=== PATIENT | male | born 1975 | race Caucasian/White ===

== ENCOUNTER 2018-07-24 15:50 | Emergency (ER) | payer BC ==
[2018-07-24] MEDS ORDERED: CLINDAMYCIN 600MG/50ML PREMIX 600 MG/50 ML BAG IVPB ONE (15:52)
--- NOTE | 2018-07-24 15:58 | Emergency Department Record ---
History of Present Illness - General Stated complaint: SORE ON FACE Time Seen by Provider: 07/24/18 15:52 Source: Patient Mode of Arrival: Ambulatory Limitations: No limitations - History of Present Illness Initial comments: 43 yo male presents with redness and swelling to the right maxillary area. The area started small yesterday evening. It is not tender but it is warm and red. No pain or fever. No dental issues. No MRSA history. No diabetes. He did not see any bugs or spiders bite him. No other sores on his body. He was seen in the [facility]. MD complaint: Abscess/boil -: Days(s) (1) Location: Face Severity: Mild Quality: Other (No pain) Improves with: None Worsens with: None Context: None Associated symptoms: Denies other symptoms Treatments Prior to Arrival: None - Related Data Previous Rx's Medication Instructions Recorded Clindamycin HCl 300 mg PO QID #28 capsule 07/24/18 Allergies Allergy/AdvReac Type Severity Reaction Status Date / Time No Known Allergies Allergy none Verified 07/24/18 16:09 Review of Systems Constitutional: Denies: Chills, Fever, Malaise, Weakness Eyes: Denies: Eye discharge, Eye pain, Photophobia, Vision change ENT: Denies: Congestion, Throat pain Respiratory: Denies: Cough, Dyspnea Cardiovascular: Denies: Chest pain, Syncope Endocrine: Denies: Fatigue Gastrointestinal: Denies: Abdominal pain, Diarrhea, Nausea, Vomiting Genitourinary: Denies: Dysuria, Frequency, Hematuria Musculoskeletal: Denies: Arthralgia, Back pain, Myalgia Skin: Reports: As per HPI, Lesions. Denies: Bruising, Change in color Neurological: Denies: Confusion, Headache Psychiatric: Denies: Anxiety Hematological/Lymphatic: Denies: Blood Clots, Easy bleeding, Easy bruising, Swollen glands Physical Exam - General General Appearance: Alert, Oriented x3, Cooperative, No acute distress Limitations: No limitations - Head Head exam: Atraumatic, Normal inspection Image of Face/Head: 1 - 2cm soft, non tender, central 3mm scab, erythema locally - Eye Eye exam: Normal appearance, PERRL. negative: Conjunctival injection, Scleral icterus - ENT ENT exam: Mucous membranes moist, Normal orophraynx Ear exam: Normal external inspection Nasal Exam: Normal inspection Mouth exam: Normal external inspection Teeth exam: Normal inspection Throat exam: Normal inspection - Neck Neck exam: Normal inspection, Full ROM. negative: Lymphadenopathy - Extremities Extremities exam: Normal inspection - Neurological Neurological exam: Alert, Oriented X3 - Psychiatric Psychiatric exam: Normal affect, Normal mood - Skin Skin exam: Erythema Type of lesion: Abscess Distribution of rash: Face Course - Reevaluation(s) Reevaluation #1: The area is approximately 2 x 3cm I used the bedside US to assess for abscess. No discrete fluid collection was identified I discussed with him needle aspiration to assess for any pus as well. He agreed with this approach Betadine prep. 18 gauge needle used. No pus. Only a small amount of blood. The small amount of blood cultured He will be given a dose of Clindamycin and sent home on PO Clindamycin. 07/24/18 16:16 07/24/18 16:32 BMP is normal CRP is 0.7 DC with oral clindamycin We discussed reasons for immediate return to the ED Medical Decision Making - Lab Data Result diagrams: 07/24/18 15:59 07/24/18 15:59 Disposition Disposition: Discharge Clinical Impression: Facial cellulitis Disposition: Home, Self-Care Condition: (1) Good Instructions: Cellulitis (ED) Additional Instructions: Call your doctor for the next available follow up appointment Return to the ER for a recheck if worse, any new concerns or questions over the next 2 days Take the prescriptions provided as directed every days Review this ER visit and the tests performed with your family doctor Prescriptions: Clindamycin HCl 300 mg PO QID #28 capsule Forms: Patient Portal Access Time of Disposition: 16:32 Quality - Quality Measures Quality Measures: N/A - Blood Pressure Screening Does Patient Have Any of the Following: No Blood Pressure Classification: Pre-Hypertensive BP Reading Systolic Measurement: 130 Diastolic Measurement: 85 Screening for High Blood Pressure: < Pre-Hypertensive BP, F/U Documented > [ G8950] Pre-Hypertensive Follow-up Interventions: Referral to alternative/primary care provider.
[2018-07-24 16:08] LABS: BASO % 0.3 % (0-6); EOS % 0.3 % (0-6); GRAN % 72.3 % (47-80); HEMATOCRIT 45.9 % (42.0-52.0); HEMOGLOBIN 15.7 gm/dl (14.0-18.0); LYMPH % 17.8 % (16-45); MEAN CELL VOLUME 86.9 fl (81-97); MEAN CORPUSCULAR HEMOGLOBIN 29.7 pg (27-33); MEAN CORPUSCULAR HGB CONC 34.2 g/dl (32-36); MEAN PLATELET VOLUME 9.7 fl (7.4-10.4); MONO % 9.3 % (0-9); PLATELET COUNT 313 K/uL (130-400); RED BLOOD COUNT 5.28 M/uL (4.40-5.70)
[2018-07-24 16:21] LABS: BLOOD UREA NITROGEN 11 mg/dL (6-20); CREATININE 0.9 mg/dL (0.7-1.2); EST GLOMERULAR FILTRATION RATE > 60 mL/min
[2018-07-24 16:24] LABS: GLUCOSE,RANDOM 101 mg/dL (74-109)
[2018-07-24 16:27] LABS: C-REACTIVE PROTEIN 0.74 mg/dL (<0.5)
== END 2018-07-24 16:45 | disposition home or self-care (01) ==
LOC: ER 15:50
DX: L03.211 Cellulitis of face (principal)
CPT/HCPCS: 10160; 80048; 85025; 86140; 96365; 99284

== ENCOUNTER 2018-07-25 15:30 | Emergency (ER) | payer BC ==
[2018-07-25] MEDS ORDERED: CLINDAMYCIN 600MG/50ML PREMIX 600 MG/50 ML BAG IVPB ONE (15:35)
[2018-07-25] MEDS ORDERED: METHYLPREDNISOLONE PF 125MG/VIAL IVP ONE (15:35)
--- NOTE | 2018-07-25 15:42 | Emergency Department Record ---
History of Present Illness - General Chief Complaint: Wound, check Stated Complaint: RECHECK Time Seen by Provider: 07/25/18 15:35 Source: Patient Mode of arrival: Ambulatory Limitations: No limitations - History of Present Illness Initial Comments: 43 yo male presents for a recheck of his right cheek. He developed erythema and swelling without fever two days ago. He has been on one full day of antibiotics. The area is slight more swollen. However, he has now developed a small area of rash on the right hand that itches. He has been working around brush outside. With the area on the face that itches and the hand now with a rash he was concerned about poison oak/mario. No fevers. MD Complaint: Needs IV antibiotics, Wound re-check -: Days(s) (3) Initial Visit For: Cellulitis Returns Today for: Needs IV antibiotics, Wound recheck Symptoms Since Prior Visit: Worsening swelling (Mild increase in symptoms) Associated Symptoms: None Treatments Prior to Arrival: Given antibiotics on initial visit - Related Data Previous Rx's Medication Instructions Recorded Clindamycin HCl 300 mg PO QID #28 capsule 07/24/18 Prednisone [Prednisone 20Mg] 20 mg PO BID #10 tab 07/25/18 Allergies Allergy/AdvReac Type Severity Reaction Status Date / Time No Known Allergies Allergy none Verified 07/24/18 16:09 Review of Systems Constitutional: Denies: Chills, Fever, Malaise, Night sweats, Weakness Eyes: Denies: Eye discharge, Eye pain, Photophobia, Vision change ENT: Denies: Congestion, Throat pain Respiratory: Denies: Cough, Dyspnea, Hemoptysis, Stridor, Wheezes Cardiovascular: Denies: Chest pain, Palpitations, Syncope Endocrine: Denies: Fatigue Gastrointestinal: Denies: Abdominal pain, Diarrhea, Nausea, Vomiting Genitourinary: Denies: Dysuria, Frequency, Hematuria Musculoskeletal: Denies: Arthralgia, Back pain, Joint swelling, Myalgia Skin: Reports: Change in color, Rash. Denies: Bruising Neurological: Denies: Headache Psychiatric: Denies: Anxiety Hematological/Lymphatic: Denies: Easy bleeding, Easy bruising Past Medical History - SOCIAL HISTORY Smoking Status: Former smoker - RESPIRATORY Hx Respiratory Disorders: No - CARDIOVASCULAR Hx Cardio Disorders: No - NEURO Hx Neuro Disorders: No - GI Hx GI Disorders: No - Hx Genitourinary Disorders: No - ENDOCRINE Hx Endocrine Disorders: No - MUSCULOSKELETAL Hx Musculoskeletal Disorders: No - PSYCH Hx Psych Problems: No - HEMATOLOGY/ONCOLOGY Hx Hematology/Oncology Disorders: No Physical Exam - General General Appearance: Alert, Oriented x3, Cooperative, No acute distress Limitations: No limitations - Head Head exam: Atraumatic Image of Face/Head: 1 - erythema without warmth, some scant clear (non pus) drainage, soft, non tender area - Eye Eye exam: Normal appearance, PERRL, EOMI, Periorbital swelling (mild lower lid swelling). negative: Conjunctival injection, Scleral icterus - ENT ENT exam: Normal exam, Mucous membranes moist, Normal orophraynx Ear exam: Normal external inspection Nasal Exam: Normal inspection Mouth exam: Normal external inspection Teeth exam: Normal inspection Throat exam: Normal inspection - Neck Neck exam: Normal inspection, Full ROM. negative: Lymphadenopathy - Respiratory Respiratory exam: Normal lung sounds bilaterally. negative: Respiratory distress - Cardiovascular Cardiovascular Exam: Regular rate, Normal rhythm, Normal heart sounds - Extremities Extremities exam: Full ROM. negative: Normal inspection, Joint swelling, Tenderness Image of Hand: 1 - erythematous rash, slightly raised, itches - Neurological Neurological exam: Alert, Oriented X3 - Psychiatric Psychiatric exam: Normal affect, Normal mood. negative: Agitated, Anxious - Skin Skin exam: Erythema, Rash (face and hand) Course - Reevaluation(s) Reevaluation #1: The area is slightly worse than yesterday but now with an itchy erythematous area on the right hand This may represent a contact dermatitis. Solumedrol was ordered. I did discuss a CT scan to ensure no abscess formation or complication Bedside US was again performed. No visible fluid collection on the bedside US He agrees with CT at this time 07/25/18 17:25 CT of the face was reviewed. No abscess. The CT is consistent with possible cellulitis We discussed the results and the plan to continue PO antibiotic as he has only had one day on antibiotics and not a treatment failure at this time We discussed returning in the next 1-2 days for a recheck in not improving and sooner if worse Disposition Disposition: Discharge Clinical Impression: Facial cellulitis, Contact dermatitis Disposition: Home, Self-Care Condition: (1) Good Instructions: Cellulitis (ED) Additional Instructions: Return in the next 1-2 days if not improving Return sooner if worse, fever, pain Take the prescriptions as directed Prescriptions: Prednisone [Prednisone 20Mg] 20 mg PO BID #10 tab Forms: Patient Portal Access Time of Disposition: 17:25 Quality - Quality Measures Quality Measures: N/A - Blood Pressure Screening Does Patient Have Any of the Following: No Blood Pressure Classification: Pre-Hypertensive BP Reading Systolic Measurement: 124 Diastolic Measurement: 79 Screening for High Blood Pressure: < Pre-Hypertensive BP, F/U Documented > [ G8950] Pre-Hypertensive Follow-up Interventions: Referral to alternative/primary care provider.
--- NOTE | 2018-07-29 04:54 | CT SCAN REPORT ---
DATE: 07/25/2018. EXAM: CT MAXILLOFACIAL WITH CONTRAST. HISTORY: Facial swelling and inflammation after being scratched by a tree branch. TECHNIQUE: Standard CT imaging of the maxillofacial structures with intravenous contrast. Coronal and sagittal reformations are provided. COMPARISON: None. FINDINGS: There is subcutaneous edema and skin thickening overlying the right side of the face. No discrete fluid collection is identified. The parotid and submandibular glands appear normal. The parapharyngeal spaces are unremarkable. No enlarged adenopathy. The orbits and globes are unremarkable. The paranasal sinuses and mastoid air cells are clear. There is debris in the external auditory canals bilaterally. No periapical lucency is identified. No radiopaque foreign body is identified. IMPRESSION: FINDINGS OF RIGHT-SIDED FACIAL CELLULITIS. NO DISCRETE ABSCESS OR RADIOPAQUE FOREIGN BODY. JOB NUMBER: [id number] MTDD
== END 2018-07-25 17:32 | disposition home or self-care (01) ==
LOC: ER 15:30
DX: L03.211 Cellulitis of face (principal); L25.9 Unspecified contact dermatitis, unspecified cause
CPT/HCPCS: 99284 ×2; 96365; 96375; 70487; Q9967; J2930